=== PATIENT | female | born 1955 | race African-American/Black ===

== ENCOUNTER 2017-02-03 22:35 | Inpatient (IN) | payer OTHER, MEDICAID ==
[~2017-02-03] VITALS: Ht 152.4 cm; Wt 39.9 kg
--- NOTE | 2017-02-03 23:31 | NUR ---
PATIENT WAS BROUGHT IN BY EMS. WITH REPORT OF BEING ALTERED.PATIENT SEEN IN NO ACUTE DISTRESS NOT VERBALIZING .
[2017-02-03 23:50] LABS: BASOPHIL % 1.1 % (0-2); PLATELET COUNT 180 x10^3mcL (130-400)
[2017-02-03 23:51] LABS: RED CELL DISTRIBUTION WIDTH 15.3 % (11.5-14.5)
[2017-02-03 23:54] LABS: CALCIUM 7.8 mg/dL (8.5-10.1); CARBON DIOXIDE 32.2 mmol/L (21-32); CHLORIDE SERUM 103 mmol/L (98-107); GFR1 60 mL/min; GLUCOSE SERUM 83 mg/dL (74-106); POTASSIUM SERUM 3.4 mmol/L (3.5-5.1); SODIUM SERUM 141 mmol/L (136-145)
[2017-02-03 23:58] LABS: ALBUMIN 3.7 g/dL (3.4-5.0); ALKALINE PHOSPHATASE 81 U/L (46-116); ALT/SGPT 15 U/L (14-59); AST/SGOT 21 U/L (15-37); BILIRUBIN TOTAL 0.2 mg/dL (0.20-1.00); CHOLESTEROL 193 mg/dL (<200); TOTAL PROTEIN, SERUM 7.4 g/dL (6.4-8.2)
[2017-02-04] VITALS (7 sets, daily range): BP systolic 156–208; BP diastolic 93–406; Ht 152.4 cm; Wt 39.9 kg
--- NOTE | 2017-02-04 02:43 | NUR ---
REPORT WAS GIVEN TO DANYELLE. PATIENT TRANSPORTED TO ROOM 206B.
--- NOTE | 2017-02-04 02:46 | NUR ---
PATIENT IS STILL DOES NOT VERBAIZE. PATIENT WAS PUT ON THE BED ZEPEDA BUT DID NOT VOID.
--- NOTE | 2017-02-04 03:49 | NUR ---
REC'D PT FROM ED VIA [facility] ACCOMPANIED BY NURSE. PT AAOX2, ORIENTED TO SELF AND PLACE. REORIENTED TO SITUATION AND TIME. PT STATED SHE WAS HERE FOR "HIGH BLOOD PRESSURE," BUT FAMILY FOUND HER ALTERED AND BROUGHT HER TO ER. SLOW TO RESPOND, SLURRED SPEECH, SHAKEY, FORGETFUL. ON TELE 38. DENIES CP, DIZZINESS, OR PALPITATIONS. NO EDEMA NOTED. DENIES RESP DISTRESS OR SOB. BREATHING EVEN/UNLABORED ON RA. RR 12. DENIES ABD PAIN, TENDERNESS, OR N/V. DENIES INCONTINENCE OR DYSURIA. GENERALIZED WEAKNESS. SKIN INTACT. C/O PAIN TO R SIDE- SHOULDER AND FOOT 05/09. INFORMED PT SHE CANNOT RECEIVE NORCO OR MORPHINE D/T HER SITUATION BUT CAN ASK THE DRHetal FOR ALT FORM OF PAIN MED. IV TO RFA PATENT AND INFUSING NS @ 100 ML/HR. CALL LIGHT WITHIN REACH, BED AT LOWEST POSITION, BED ALARM ON. SANDWICH AND APPLE JUICE GIVEN PER REQUEST. WILL CONTINUE TO MONITOR.
[2017-02-04 04:04] LABS: MAGNESIUM 1.7 mg/dL (1.8-2.4); PHOSPHOROUS 4.8 mg/dL (2.5-4.9)
[2017-02-04 04:11] LABS: T3 TOTAL 1.36 ng/mL
[2017-02-04 04:17] LABS: FREE T4 1.91 ng/dL (0.76-1.46); FREE THYROXINE INDEX 4.5 ug/dL (1.4-4.5); T4(THYROXINE) 12.5 ug/dL (4.7-13.3)
--- NOTE | 2017-02-04 04:44 | NUR ---
REC'D REPORT FROM ANAM MCGARRY. PT AWAKE, RESTING IN BED. NO COMPLAINTS AT THIS TIME. DENIES CP, DIZZINESS, OR PALPITATIONS. DENIES RESP DISTRESS BUT REPORTS MILD DYSPNEA, TOLERABLE. WHEEZE TO AVA LUNGS. IS ENCOURAGED. NO COUGH NOTED. VOIDING FREELY. CALL LIGHT WITHIN REACH, BED AT LOWEST POSITION. WILL CONTINUE TO MONITOR.
--- NOTE | 2017-02-04 04:47 | NUR ---
PT C/O PAIN 04/09 TO R SIDE. SPOKE TO DR. KNOWLES. REPORTS HE DOES NOT WANT TO GIVE ANY MORE PAIN MEDS TO EXACERBATE THE SITUATION UNTIL MEDS SHE HAS TAKEN HAS BEEN VERIFIED. EXPLAINED THIS TO PT, VERBALIZED UNDERSTANDING. PUDDING GIVEN PER REQUEST. NO URGE TO VOID AT THIS TIME. CALL LIGHT WITHIN REACH, BED AT LOWEST POSITION, BED ALARM ON. WILL CONTINUE TO MONITOR.
--- NOTE | 2017-02-04 05:32 | NUR ---
PT AWAKE AND MORE ALERT. AAOX3-4, SPEECH CLEAR, FOLLOWS COMMANDS, PERRLA. NO MORE SLURRING OR SLOW RESPONSES. DENIES TAKING ANY OTHER MEDICATIONS NOT PRESCRIBED TO HER OR OVERDOSING ON PRESCRIBED PAIN MEDS. C/O PAIN TO R SIDE. SPOKE TO DR. KNOWLES AGAIN REGARDING PAIN MED. STILL DOES NOT WANT TO GIVE ANYTHING FOR PAIN YET. EXPLAINED TO PT, VERBALIZED UNDERSTANDING. NO SIGNS OF DISTRESS NOTED. BREATHING EVEN/UNLABORED ON RA. STILL NO URGE TO VOID. CALL LIGHT WITHIN REACH, BED AT LOWEST POSITION, BED ALARM ON. WILL CONTINUE TO MONITOR.
--- NOTE | 2017-02-04 06:57 | NUR ---
LEFT A MESSAGE TO PT'S SON REQUESTING TO BRING IN A LIST OF THE PT'S MEDICATIONS.
--- NOTE | 2017-02-04 07:05 | NUR ---
BP 161/94. REPORTS TAKING LISINOPRIL, CLONIDINE, AND LASIX AT HOME. DOSES UNKNOWN. DR. KNOWLES MADE AWARE VIA [facility]. WILL ASK DAY NURSE TO FOLLOW UP WITH MORNING RESIDENT.
--- NOTE | 2017-02-04 07:20 | NUR ---
RECEIVED REPORT FROM NOC MALGORZATA SOTOMAYOR AT THIS TIME. PATIENT IS AWAKE, ALERT AND O X 4. TELE # [address] PULSES MODERATE, EDEMA NOTED. ON ROOM AIR, NO DISTRESS NOTED, LUNGS CTA. BOWEL SOUNDS ACTIVE, ABD SOFT/FLAT. SKIN WARM, DRY INTACT. IV TO RFA IN PLACE. CALL LIGHT WITH IN REACH.
--- NOTE | 2017-02-04 08:00 | NUR ---
ROUNDS MADE AT THIS TIME. DR. VELOZ, RESIDENT TEAM, TSACY ROQUE, AND PRIMARY RN AT THE BEDSIDE. PLAN OF DISCUSSED, QUESTIONS AND CONCERNS ADDRESSED.
--- NOTE | 2017-02-04 08:18 | NUR ---
NOTIFIED DR. MARROQUIN WBC 3.5, AMMONIA 64 AT THIS TIME.
--- NOTE | 2017-02-04 10:07 | NUR ---
NOTIFED DR. MARROQUIN PATIENT TAKES BP MEDICATION AT HOME AND SHE IS NOT RECEIVING ANY HERE. WILL MEDICATE ORDRED.
[2017-02-04 11:23] LABS: UA SPECIFIC GRAVITY 1.025 (1.005-1.035); microscopic required? YES; urine erythrocyte NEGATIVE (NEGATIVE)
[2017-02-04 11:42] LABS: AMPHETAMINE QUAL UR NONE DETECTED (NEG <=1000)
--- NOTE | 2017-02-04 12:38 | NUR ---
NOTIFIED DR. MARROQUIN BP 189/106 HR 67, LISINOPRIL WAS GIVEN (SEE EMAR), AND PATIENT IS ON CLONIDINE AND LISINOPRIL AT HOME BUT DOES NOT KNOW DOSE.
--- NOTE | 2017-02-04 14:48 | NUR ---
PATIENT AMBULATING IN [place] AT THIS TIME. ESCORTED BY DAUGHTER, GAIT IS STEADY. TOLERATING ACTIVITY WELL.
--- NOTE | 2017-02-04 14:58 | NUR ---
NOTIFIED DR. MARROQUIN OF [facility]A RESULTS.
[2017-02-04] MEDS ORDERED: HYDROCHLOROTHIA25 MG PO (16:32)
[2017-02-04] MEDS ORDERED: CLONIDINE0.2 M1 PO (16:35)
[2017-02-04] MEDS ORDERED: BAYER ASPIRIN R81 MG PO (16:36)
[2017-02-04] MEDS ORDERED: XANAX2 MG PO (16:36)
[2017-02-04] MEDS ORDERED: CLONIDINE HYDR0.3 M1 PO (16:36)
[2017-02-04] MEDS ORDERED: POTASSIUM CHLO20 ME1 PO (16:37)
[2017-02-04] MEDS ORDERED: PRINIVIL20 MG PO (16:37)
[2017-02-04] MEDS ORDERED: APAP/HYDROCODON1 T11 PO (16:38)
[2017-02-04] MEDS ORDERED: CARISOPRODOL350 MG PO (16:38)
--- NOTE | 2017-02-04 17:15 | NUR ---
PAGE GATED DR. MARROQUIN BP 165/101 AFTER CLONIDINE AND MORPHINE FOR PAIN (SEE EMAR). ENDORSED CARE TO NOC MALGORZATA LEARY.
--- NOTE | 2017-02-04 17:50 | NUR ---
NOTIFIED DR. HARPER BP 208/123 WITH HR 73 AT THIS TIME. MEDICATED WITH SCHEDULED CLONIDINE 0.1 MG PO (SEE EMAR). PATIENT STATES SHE HAS BACK PAIN 8 TO BACK. WILL MEDICATE ORDRED PRN.
--- NOTE | 2017-02-04 19:44 | NUR ---
RECEIVED PATIENT IN BED AWAKE, ALERT AND ORIENTED WITHNO C/O PAIN AND DISCOMFORT THIS TIME. TELE#38, NSR ON MONITOR. SCD TO BLE IN PLACE. BREATHING EASY AND NONLABOR SATTING AT 100% RA. IV TO RFA INTACT AND INFUSING WELL. WILL CONTINUE TO MONITOR. CALL LIGHT WITHIN REACH.
--- NOTE | 2017-02-04 21:00 | NUR ---
IV TO RT FOREARM INFILTRATED AND REINSERTED TO LFA INTACT AND INFUSING WELL.
--- NOTE | 2017-02-04 23:55 | NUR ---
STILL AWAKE AT BEDSIDE, BLOOD SUGAR CHECKED 189,REFUSED 3 UNITS RISS COVERAGE.
--- NOTE | 2017-02-04 23:56 | NUR ---
SLEEPING THIS TIME BREATHING EASY AND NONLABOR. WILL CONTINUE TO MONITOR.
--- NOTE | 2017-02-05 04:44 | NUR ---
AWAKE THIS TIME C/O HEADACHE TYLENOL 650MG PO GIVEN. BLOOD PRESSURE CHECKED- 191/98, HYDRALAZINE 20MG IV GIVEN PRESCRIBED. WILL CONTINUE TO MONITOR.
[2017-02-05 04:45] VITALS: BP 191/98
--- NOTE | 2017-02-05 05:07 | NUR ---
HAD BM X2 LOOSE AFTER LACTULOSE WAS GIVE. CHECKED AT INTERVALS FOR NEEDS AND SAFETY.
[2017-02-05 05:38] VITALS: BP 145/87
--- NOTE | 2017-02-05 06:26 | NUR ---
US TECH AT BEDSIDE THIS TIME PERFORMING US RENAL. WILL ENDORSE CONTINOUS CARE TO AM SHIFT.
[2017-02-05 06:33] LABS: BASOPHIL % 0.9 % (0-2); PLATELET COUNT 159 x10^3mcL (130-400)
[2017-02-05 06:48] LABS: RED CELL DISTRIBUTION WIDTH 14.6 % (11.5-14.5)
[2017-02-05 07:03] LABS: ALKALINE PHOSPHATASE 75 U/L (46-116); ALT/SGPT 19 U/L (14-59); AST/SGOT 23 U/L (15-37); BILIRUBIN TOTAL 0.24 mg/dL (0.20-1.00); CALCIUM 7.4 mg/dL (8.5-10.1); CARBON DIOXIDE 20.9 mmol/L (21-32); CHLORIDE SERUM 113 mmol/L (98-107); CREATININE SERUM 0.6 mg/dL (0.6-1.0); GFR1 > 60 mL/min; GLUCOSE SERUM 75 mg/dL (74-106); POTASSIUM SERUM 3.9 mmol/L (3.5-5.1); SODIUM SERUM 148 mmol/L (136-145); TOTAL PROTEIN, SERUM 6.7 g/dL (6.4-8.2)
[2017-02-05 07:04] LABS: ALBUMIN 3.1 g/dL (3.4-5.0)
--- NOTE | 2017-02-05 08:00 | NUR ---
RECEIVED PATIET ALERT AND ORIENTED TIMES FOUR. PATIENT HAS BEEN WITH INTERMITTANT PAIN TO THE RIGHT LEG FORM THE MID BACK AND DOWN. LUGNS ARE CLEAR AND BOWEL SUONDS ACTIVE. PATIENT AHS PULSES PALPABLE TO ALL EXTREMITIES AND NO EDEMA NOTED. PATIENT HAS NOTED LABS FOR URINE WITH PROTIEN AND BACTERIA MODERATE AND BUN AT 21.0 AND WITH POTASSIUM OF 3.4. PATIEN HAS NA AT 148 AND IS RECIEVING NS AT 100CC PER HOUR. PATIENT AHS ELEVATED AMMONIA LEVEL AND HAS BEEN ON LACTULOSE BUT DOES NOTE LIKE THE GASSINESS THE MEDICATION GIVES HER AND SHE DOES NOT WANT ANYMORE. PATIENT HAS VITALS AT THIS TIME AT 97.9, 87, 18, 145/87, AND 100% ON ROOM AIR. PATIENT HAS A HISTORY OF HYPERTEMNSION AND HAS BEEN ELEVATED OVER NIGHT AND GIVEN HYDROLAZINE AND SEEMS TO BE EFFECTIVE AT THIS TIME.
--- NOTE | 2017-02-05 08:15 | NUR ---
SEEN BY THE RESIDENT AND INTERNS AND PLAN OF CARE DISCUSSED.
--- NOTE | 2017-02-05 08:45 | NUR ---
PATIENT COMPLAINS OF PAIN TO THE RIGH RIGHT SIDE OF HER MID TO LOWER BACK AND DOWN HER LEG. SHE REQUESTED MORPHINE FOR PAIN. SHE ALSO STATES SHE HAS SOME GASTRIC UPSET SINCE TAKING LACTULOSE LAST NIGHT. ALSO GAVE ZOFRAN AND THE ORDERED PROTONIX AND SHE STATES SGE DOES NOT NEED THIS MEDICATION AND HAS HAD SEVERAL STOOLS ALREADY. WILL OFFER ETO HOLD OR SHE CAN REFUSE THE LACTULOSE AT 1400 TODAY.
[2017-02-05 09:40] VITALS: BP 149/84
[2017-02-05 13:50] VITALS: BP 132/84
--- NOTE | 2017-02-05 13:52 | NUR ---
DAUGHTER BROUGHT IN MEDICATION LIST AND ADVISED OF THE PATIENTS OVER USE OF SOMA.
[2017-02-05 17:25] VITALS: BP 151/88
--- NOTE | 2017-02-05 17:31 | NUR ---
DISPITE REFUSING THE LACTULOSE THE PATIENT HAS NOT ANY COMPLAINTS OF HER STOMACH PAIN AND STATES SHE HAS NOT BEEN CONSTIPATED. PATIENT WAS EXPLAINTED THE RATIONAL FOR THE LACTULOSE. PATIENT DENIES ANY PAIN AT THIS TIME.
--- NOTE | 2017-02-05 19:34 | NUR ---
RECEIVED PATIENT IN BED AWAKE, ALERT AND ORIENTED WITH NO SIGN OF ACUTE DISTRESS NOTED, BREATHING EASYA ND NONLABOR SATTING AT 98% RA. TELE# 38 NSR ON MONITOR. ABDOMEN SOFT AND NON TENDER WITH ACTIVE BS. IV TO LFA INTACT AND INFUSING WELL. WILL CONTINUE TO MONITOR. CALL LIGHT WITHIN REACH.
[2017-02-05 20:59] VITALS: BP 125/71
--- NOTE | 2017-02-05 23:09 | NUR ---
AWAKE C/O BACKPAIN ART SCALE OF 8/10 PER PATIENT, MEDICATED WITH MORPHINE 2MG IVP PRESCRIBED. WILL CONTINUE TO MONITOR.
--- NOTE | 2017-02-06 00:08 | NUR ---
SLEEPING THIS TIME AFTER PAIN MEDS WAS GIVEN. WILL CONTINUE TO MONITOR.
--- NOTE | 2017-02-06 05:03 | NUR ---
BLOOD PRESSURE CHECKED- 183/95, HYDRALAZINE 10MG IVP GIVEN PRESCRIBED. WILL CONTINUE TO MONITOR.
[2017-02-06 05:28] VITALS: BP 183/95
--- NOTE | 2017-02-06 06:40 | NUR ---
RECHECKED BP-158/82 AFTER HYDRALAZINE 10MG IV WAS GIVEN.WILL ENDORSE CONTINOUS CARE TO AM SHIFT.
[2017-02-06 06:41] VITALS: BP 158/82
[2017-02-06 07:28] LABS: CALCIUM 7.7 mg/dL (8.5-10.1); CHLORIDE SERUM 107 mmol/L (98-107); CREATININE SERUM 0.7 mg/dL (0.6-1.0); GFR1 > 60 mL/min; GLUCOSE SERUM 89 mg/dL (74-106); POTASSIUM SERUM 3.4 mmol/L (3.5-5.1); SODIUM SERUM 141 mmol/L (136-145)
--- NOTE | 2017-02-06 07:52 | NUR ---
PT AWAKE ALERT AND ORIENTED X4 ABLE TO MAKE NEEDS KNOWN. TELE 38. PULSES EQUAL BILATERAL NO EDEMA NOTED. LUNGS CTA. BOWEL TONES ACTIVE. BRP. MILD GENMERALIZED WEAKNESS. SKIN IS CDI. DENIES PAIN AT THIS TIME. IV TO THE LFA INTACT. CALL LIGHT IN REACH.
[2017-02-06 10:02] VITALS: BP 153/79
--- NOTE | 2017-02-06 11:10 | NUR ---
PT RESTING IN BED NO SIGNS OF DISTRESS CALL LIGHT IN REACH WILL CONTINUE TO MONITOR.
[2017-02-06 14:00] VITALS: BP 119/74
[2017-02-06 16:47] VITALS: BP 149/90
[2017-02-06 16:51] VITALS: BP 149/90
[2017-02-06] MEDS ORDERED: BAYER ASPIRIN R81 MG PO (17:25)
[2017-02-06] MEDS ORDERED: CLONIDINE0.2 M1 PO (17:25)
[2017-02-06] MEDS ORDERED: PRINIVIL20 MG PO (17:25)
[2017-02-06] MEDS ORDERED: LACTULOSE10 GM/152 PO (17:29)
[2017-02-06] MEDS ORDERED: APAP/HYDROCODON1 T11 PO (17:49)
[2017-02-06] MEDS ORDERED: HYDROCHLOROTHIA25 MG PO (17:49)
--- NOTE | 2017-02-06 18:19 | NUR ---
DISCHARGE INSTRUCTIONS GIVEN TO PT, IV DC'D CATHETER TIP INTACT. PT AND FAMILY MADE AWARE OF FOLLOW UP APPT WITH PCP, VERBALIZED UNDERSTANDING. ALL BELONGINGS TAKEN OFF THE FLOOR WITH PT, PT ACCOMPANIED OFF THE FLOOR BY REGIONAL DRIVER TO LOBBY. TELE MONITOR CLEANED AND RETURNED TO MONITOR ROOM.
== END 2017-02-06 18:30 | disposition home or self-care (01) | DRG 441 ==
LOC: ED 22:35 → DU 02-04 01:54
PROVIDERS: Emergency Medicine; ADMIT Family Medicine
DX: K72.01 Acute and subacute hepatic failure with coma (principal); N17.0 Acute kidney failure with tubular necrosis; E72.20 Disorder of urea cycle metabolism, unspecified; Z68.1 Body mass index [BMI] 19.9 or less, adult; E87.6 Hypokalemia; E83.42 Hypomagnesemia; E83.51 Hypocalcemia; F17.210 Nicotine dependence, cigarettes, uncomplicated; I10 Essential (primary) hypertension
CPT/HCPCS: 83880; 84439; 97110-GP; C9113; G0480; J0360; J2270; J2405; J7030; Q0092

== ENCOUNTER 2017-02-07 09:56 | Emergency (ER) | payer OTHER, MEDICAID ==
[~2017-02-07 09:56] MED LIST: APAP/HYDROCODON1 T11 PO; BAYER ASPIRIN R81 MG PO; CARISOPRODOL350 MG PO; CLONIDINE HYDR0.3 M1 PO; CLONIDINE0.2 M1 PO; HYDROCHLOROTHIA25 MG PO; LACTULOSE10 GM/152 PO; POTASSIUM CHLO20 ME1 PO; PRINIVIL20 MG PO; XANAX2 MG PO
[2017-02-07 13:45] VITALS: BP 162/94
== END 2017-02-07 13:45 ==
LOC: ED 09:56
DX: I10 Essential (primary) hypertension (principal); G89.29 Other chronic pain; M54.6 Pain in thoracic spine; F32.9 Major depressive disorder, single episode, unspecified; Z86.59 Personal history of other mental and behavioral disorders
CPT/HCPCS: J1885; J3010

== ENCOUNTER 2017-02-10 08:20 | Inpatient (IN) | payer OTHER, MEDICAID ==
[~2017-02-10] VITALS: Ht 149.9 cm; Wt 52.2 kg
[2017-02-10 09:11] LABS: CALCIUM 7.8 mg/dL (8.5-10.1); CARBON DIOXIDE 27.7 mmol/L (21-32); CHLORIDE SERUM 103 mmol/L (98-107); CREATININE SERUM 1.1 mg/dL (0.6-1.0); GFR1 54 mL/min; GLUCOSE SERUM 86 mg/dL (74-106); POTASSIUM SERUM 3.2 mmol/L (3.5-5.1); SODIUM SERUM 141 mmol/L (136-145)
[2017-02-10 09:12] LABS: PLATELET COUNT 202 x10^3mcL (130-400)
[2017-02-10 09:16] LABS: ALBUMIN 3.7 g/dL (3.4-5.0); ALKALINE PHOSPHATASE 90 U/L (46-116); ALT/SGPT 15 U/L (14-59); AST/SGOT 20 U/L (15-37); BILIRUBIN TOTAL 0.2 mg/dL (0.20-1.00); TOTAL PROTEIN, SERUM 7.5 g/dL (6.4-8.2)
[2017-02-10 09:21] LABS: BASOPHIL % 2.2 % (0-2)
[2017-02-10 09:44] LABS: microscopic required? NO
[2017-02-10 09:59] LABS: AMPHETAMINE QUAL UR NONE DETECTED (NEG <=1000)
[2017-02-10 10:01] LABS: urine erythrocyte NEGATIVE (NEGATIVE)
[2017-02-10 12:14] VITALS: BP 156/97
[2017-02-10 12:56] LABS: MAGNESIUM 1.8 mg/dL (1.8-2.4); PHOSPHOROUS 5.4 mg/dL (2.5-4.9)
[2017-02-10 13:21] VITALS: BP 156/97
[2017-02-10 16:48] VITALS: Ht 149.9 cm; Wt 52.2 kg
[2017-02-10 17:16] VITALS: BP 160/92
[2017-02-10 17:19] VITALS: BP 160/92
[2017-02-10 23:37] VITALS: BP 170/99
[2017-02-11 01:08] LABS: BASOPHIL % 1.1 % (0-2); PLATELET COUNT 175 x10^3mcL (130-400)
[2017-02-11 01:09] LABS: RED CELL DISTRIBUTION WIDTH 15.9 % (11.5-14.5)
[2017-02-11 01:14] VITALS: BP 155/85
[2017-02-11 01:49] LABS: CARBON DIOXIDE 24.1 mmol/L (21-32); CHLORIDE SERUM 111 mmol/L (98-107); CREATININE SERUM 0.8 mg/dL (0.6-1.0); GFR1 > 60 mL/min; GLUCOSE SERUM 98 mg/dL (74-106); POTASSIUM SERUM 4.3 mmol/L (3.5-5.1); SODIUM SERUM 145 mmol/L (136-145)
[2017-02-11 06:24] VITALS: BP 182/89
[2017-02-11 09:14] VITALS: BP 164/115
[2017-02-11 14:38] VITALS: BP 180/105
[2017-02-11 16:23] VITALS: BP 151/89
[2017-02-11 21:48] VITALS: BP 151/90
[2017-02-12 06:26] VITALS: BP 181/99
[2017-02-12 06:42] LABS: BASOPHIL % 0.8 % (0-2); PLATELET COUNT 207 x10^3mcL (130-400)
[2017-02-12 06:45] LABS: RED CELL DISTRIBUTION WIDTH 15.2 % (11.5-14.5)
[2017-02-12 06:56] LABS: CALCIUM 7.9 mg/dL (8.5-10.1); CARBON DIOXIDE 29.4 mmol/L (21-32); CHLORIDE SERUM 106 mmol/L (98-107); CREATININE SERUM 0.8 mg/dL (0.6-1.0); GFR1 > 60 mL/min; GLUCOSE SERUM 93 mg/dL (74-106); MAGNESIUM 1.6 mg/dL (1.8-2.4); PHOSPHOROUS 4.4 mg/dL (2.5-4.9); POTASSIUM SERUM 4.1 mmol/L (3.5-5.1); SODIUM SERUM 143 mmol/L (136-145)
[2017-02-12 10:58] VITALS: BP 163/99
[2017-02-12 13:59] VITALS: BP 159/89
[2017-02-12] MEDS ORDERED: LIPI10 PO (14:17)
[2017-02-12] MEDS ORDERED: CLONIDINE HCL0.2 MG PO (14:18)
[2017-02-12] MEDS ORDERED: ZES20 PO (14:22)
[2017-02-12] MEDS ORDERED: HYD25 PO (14:24)
[2017-02-12] MEDS ORDERED: COREG12.5 MG PO (15:34)
[2017-02-12 15:54] VITALS: BP 159/89
== END 2017-02-12 16:15 | disposition home or self-care (01) | DRG 917 ==
LOC: ED 08:20 → MU 10:49 → DU 10:49 → MU 02-11 18:30
PROVIDERS: Emergency Medicine; Student in an Organized Health Care Education/Training Program; ADMIT Family Medicine
DX: T42.8X1A Poisoning by antiparkinsonism drugs and other central muscle-tone depressants, accidental (unintentional), initial encounter (principal); G92 Toxic encephalopathy; N17.0 Acute kidney failure with tubular necrosis; I42.9 Cardiomyopathy, unspecified; E86.0 Dehydration; F03.90 Unspecified dementia, unspecified severity, without behavioral disturbance, psychotic disturbance, mood disturbance, and anxiety; E87.6 Hypokalemia; E83.39 Other disorders of phosphorus metabolism; E78.5 Hyperlipidemia, unspecified; I10 Essential (primary) hypertension; F32.9 Major depressive disorder, single episode, unspecified; F41.9 Anxiety disorder, unspecified; F17.210 Nicotine dependence, cigarettes, uncomplicated; Z68.23 Body mass index [BMI] 23.0-23.9, adult; Y92.009 Unspecified place in unspecified non-institutional (private) residence as the place of occurrence of the external cause
CPT/HCPCS: 83880; G0480; J0360; J3480; J7030; Q0092